=== PATIENT | female | born 1975 | race Caucasian/White ===

== ENCOUNTER 2022-04-28 13:14 | Inpatient (IN) | payer OTHER ==
[2022-04-28 15:16] VITALS: BMI 23.5
[2022-04-28] MEDS ORDERED: LOPERAMIDE HCL 2 MG CAPSULE PO PRN (17:35)
[2022-04-28] MEDS ORDERED: ACETAMINOPHEN 325 MG TABLET (FP) PO PRN ×2 (17:35)
[2022-04-28] MEDS ORDERED: BENZOCAINE/MENTHOL (CHLORASEPTIC ) LOZENGE MM PRN (17:35)
[2022-04-28] MEDS ORDERED: POLYETHYLENE GLYCOL (HEALTHYLAX) 3350 17 GM PACKET PO PRN (17:35)
[2022-04-28] MEDS ORDERED: NICOTINE 10 MG CARTRIDGE (INHALER) IH PRN (17:35)
[2022-04-28] MEDS ORDERED: NALOXONE HCL (KLOXXADO) 8 MG SPRAY NS PRN (17:35)
[2022-04-28] MEDS ORDERED: MAGNESIUM HYDROX 2400MG/30ML ORAL SUSPENSION 30 ML CUP PO PRN (17:35)
[2022-04-28] MEDS ORDERED: ONDANSETRON *ODT* 4 MG TABLET SL PRN (17:35)
[2022-04-28] MEDS ORDERED: IBUPROFEN 400 MG TABLET (FP) PO PRN (17:35)
[2022-04-28] MEDS ORDERED: BISMUTH SUBSALICYLATE 524 MG/30 ML PO PRN (17:35)
[2022-04-28] MEDS: PANTOPRAZOLE 40 MG TABLET PO SCH (18:20)
[2022-04-28] MEDS: METHOCARBAMOL 500 MG TABLET PO PRN (19:40)
[2022-04-28] MEDS: hydrOXYzine PAMOATE 25 MG CAPSULE (FP) PO PRN (19:40)
[2022-04-28] MEDS: chlordiazePOXIDE HCL 25 MG CAPSULE PO PRN (19:41)
[2022-04-28] MEDS: MAG HYDROX/AL HYDROX/SIMETH 30 ML UNIT-DOSE CUP PO PRN ×2 (19:44→22:25)
[2022-04-28] MEDS ORDERED: traZODone HCL 100 MG TABLET (FP) PO ONE (22:00)
[2022-04-28] MEDS: MELATONIN 5 MG TABLETS PO SCH (22:23)
[2022-04-28] MEDS: THIAMINE HCL 100 MG TABLET (FP) PO SCH (22:23)
[2022-04-28] MEDS: HYDROXYCHLOROQUINE SO4 200 MG TABLET (FP) PO SCH (22:56)
[2022-04-28] MEDS: chlordiazePOXIDE HCL 25 MG CAPSULE PO SCH (22:56)
[2022-04-29] MEDS: chlordiazePOXIDE HCL 25 MG CAPSULE PO SCH ×4 (05:45→22:39)
[2022-04-29] MEDS: LEVOTHYROXINE NA 150 MCG TABLET PO SCH (06:07)
[2022-04-29] MEDS: PRENATAL VITAMINS W/ FOLIC ACID TABLET (FP) PO SCH (10:00)
[2022-04-29] MEDS: PANTOPRAZOLE 40 MG TABLET PO SCH (10:01)
[2022-04-29] MEDS: HYDROXYCHLOROQUINE SO4 200 MG TABLET (FP) PO SCH ×2 (10:04→21:48)
[2022-04-29 11:26] LABS: HEMOGLOBIN 13.6 GM/dL (10.7-15.3); MCH 35.7 pg (25.7-33.7); MEAN CELL VOLUME 104.9 fl (80-96); MEAN PLT VOLUME 8.1 fl (7.5-11.1); PLATELET COUNT 208 10^3/uL (134-434); RBC 3.81 M/mm3 (3.60-5.2); RDW 12.4 % (11.6-15.6); WHITE BLOOD COUNT 5.2 K/mm3 (4.0-10.0)
[2022-04-29 11:30] LABS: BLOOD UREA NITROGEN 8.2 mg/dL (7-18)
[2022-04-29 11:31] LABS: ALBUMIN 3.6 g/dl (3.4-5.0); CREATININE 0.8 mg/dL (0.55-1.3)
[2022-04-29 11:32] LABS: BILIRUBIN,TOTAL 0.8 mg/dL (0.2-1); CALCIUM 9.1 mg/dL (8.5-10.1); TOT PROT 6.7 g/dl (6.4-8.2)
[2022-04-29] MEDS: NICOTINE POLACRILEX 2 MG GUM BUC PRN (12:24)
[2022-04-29] MEDS: METHOCARBAMOL 500 MG TABLET PO PRN ×2 (14:05→21:49)
[2022-04-29] MEDS: hydrOXYzine PAMOATE 25 MG CAPSULE (FP) PO PRN ×2 (14:05→23:23)
[2022-04-29] MEDS: chlordiazePOXIDE HCL 25 MG CAPSULE PO PRN ×2 (14:07→19:57)
[2022-04-29] MEDS: MAG HYDROX/AL HYDROX/SIMETH 30 ML UNIT-DOSE CUP PO PRN (20:01)
[2022-04-29] MEDS: THIAMINE HCL 100 MG TABLET (FP) PO SCH (21:48)
[2022-04-29] MEDS: QUEtiapine FUMARATE 200 MG TABLET PO SCH (21:48)
[2022-04-29] MEDS: traZODone HCL 50 MG TABLET (FP) PO SCH (21:48)
[2022-04-29] MEDS: MELATONIN 5 MG TABLETS PO SCH (21:48)
[2022-04-29] MEDS: levETIRAcetam 500 MG TABLET (FP) PO SCH (21:48)
[2022-04-29] MEDS: IBUPROFEN 600 MG TABLET (FP) PO PRN (23:24)
[2022-04-30] MEDS: chlordiazePOXIDE HCL 25 MG CAPSULE PO SCH ×4 (05:23→23:37)
[2022-04-30] MEDS: LEVOTHYROXINE NA 150 MCG TABLET PO SCH (06:51)
[2022-04-30] MEDS ORDERED: BUPRENORPHINE HCL SL SCH (10:00)
[2022-04-30] MEDS ORDERED: BUPRENORPHINE/NALOXONE 4 MG/1 MG FILM PACKET SL ONE (10:00)
[2022-04-30] MEDS ORDERED: NALOXONE HCL SL SCH (10:00)
[2022-04-30] MEDS ORDERED: PATIENT'S OWN MEDICATION (NON-FORMULARY) (Buprenorphine/Naloxone 1 EACH Film) SL SCH (10:00)
[2022-04-30] MEDS: HYDROXYCHLOROQUINE SO4 200 MG TABLET (FP) PO SCH ×2 (10:09→22:06)
[2022-04-30] MEDS: PANTOPRAZOLE 40 MG TABLET PO SCH (10:09)
[2022-04-30] MEDS: LEVOTHYROXINE 100 MCG, LEVOTHYROXINE 50 MCG PO SCH (10:09)
[2022-04-30] MEDS: levETIRAcetam 500 MG TABLET (FP) PO SCH ×2 (10:09→22:06)
[2022-04-30] MEDS: PRENATAL VITAMINS W/ FOLIC ACID TABLET (FP) PO SCH (10:10)
[2022-04-30] MEDS: hydrOXYzine PAMOATE 25 MG CAPSULE (FP) PO PRN ×2 (10:11→17:37)
[2022-04-30] MEDS: NICOTINE POLACRILEX 2 MG GUM BUC PRN ×5 (10:46→20:56)
[2022-04-30] MEDS: chlordiazePOXIDE HCL 25 MG CAPSULE PO PRN ×2 (12:57→20:52)
[2022-04-30] MEDS: METHOCARBAMOL 500 MG TABLET PO PRN ×2 (13:00→22:08)
[2022-04-30] MEDS: traZODone HCL 50 MG TABLET (FP) PO SCH (22:06)
[2022-04-30] MEDS: THIAMINE HCL 100 MG TABLET (FP) PO SCH (22:06)
[2022-04-30] MEDS: QUEtiapine FUMARATE 200 MG TABLET PO SCH (22:06)
[2022-04-30] MEDS: MELATONIN 5 MG TABLETS PO SCH (22:07)
[2022-04-30] MEDS: MAG HYDROX/AL HYDROX/SIMETH 30 ML UNIT-DOSE CUP PO PRN (23:37)
[2022-05-01] MEDS ORDERED: chlordiazePOXIDE HCL 10 MG CAPSULE PO PRN
[2022-05-01] MEDS: DICYCLOMINE HCL 10 MG CAPSULE PO PRN ×3 (02:58→17:38)
[2022-05-01] MEDS: chlordiazePOXIDE HCL 10 MG CAPSULE PO SCH ×4 (04:54→22:07)
[2022-05-01] MEDS: METHOCARBAMOL 500 MG TABLET PO PRN ×2 (05:28→17:35)
[2022-05-01] MEDS: LEVOTHYROXINE 100 MCG, LEVOTHYROXINE 50 MCG PO SCH (06:09)
[2022-05-01] MEDS ORDERED: BUPRENORPHINE/NALOXONE 2 MG/0.5 MG FILM PACKET SL SCH (10:00)
[2022-05-01] MEDS: HYDROXYCHLOROQUINE SO4 200 MG TABLET (FP) PO SCH ×2 (10:00→22:07)
[2022-05-01] MEDS: BUPRENORPHINE/NALOXONE 4 MG/1 MG FILM PACKET SL SCH (10:01)
[2022-05-01] MEDS: PRENATAL VITAMINS W/ FOLIC ACID TABLET (FP) PO SCH (10:01)
[2022-05-01] MEDS: levETIRAcetam 500 MG TABLET (FP) PO SCH ×2 (10:01→22:07)
[2022-05-01] MEDS: PANTOPRAZOLE 40 MG TABLET PO SCH (10:01)
[2022-05-01] MEDS: hydrOXYzine PAMOATE 25 MG CAPSULE (FP) PO PRN (17:35)
[2022-05-01] MEDS: NICOTINE POLACRILEX 2 MG GUM BUC PRN (17:40)
[2022-05-01] MEDS: IBUPROFEN 600 MG TABLET (FP) PO PRN (18:51)
[2022-05-01] MEDS: MELATONIN 5 MG TABLETS PO SCH (22:06)
[2022-05-01] MEDS: traZODone HCL 50 MG TABLET (FP) PO SCH (22:07)
[2022-05-01] MEDS: THIAMINE HCL 100 MG TABLET (FP) PO SCH (22:07)
[2022-05-01] MEDS: QUEtiapine FUMARATE 200 MG TABLET PO SCH (22:07)
[2022-05-02] MEDS: METHOCARBAMOL 500 MG TABLET PO PRN ×3 (01:14→17:23)
[2022-05-02] MEDS: chlordiazePOXIDE HCL 10 MG CAPSULE PO SCH ×2 (06:16→17:21)
[2022-05-02] MEDS: LEVOTHYROXINE 100 MCG, LEVOTHYROXINE 50 MCG PO SCH (06:17)
[2022-05-02] MEDS: DICYCLOMINE HCL 10 MG CAPSULE PO PRN (06:43)
[2022-05-02] MEDS: levETIRAcetam 500 MG TABLET (FP) PO SCH ×2 (10:01→22:07)
[2022-05-02] MEDS: PANTOPRAZOLE 40 MG TABLET PO SCH (10:01)
[2022-05-02] MEDS: PRENATAL VITAMINS W/ FOLIC ACID TABLET (FP) PO SCH (10:01)
[2022-05-02] MEDS: HYDROXYCHLOROQUINE SO4 200 MG TABLET (FP) PO SCH ×2 (10:02→22:07)
[2022-05-02] MEDS: hydrOXYzine PAMOATE 25 MG CAPSULE (FP) PO PRN ×2 (10:04→17:23)
[2022-05-02] MEDS: BUPRENORPHINE/NALOXONE 4 MG/1 MG FILM PACKET SL SCH (10:05)
[2022-05-02] MEDS: NICOTINE POLACRILEX 2 MG GUM BUC PRN ×5 (10:05→22:09)
[2022-05-02] MEDS: MELATONIN 5 MG TABLETS PO SCH (22:06)
[2022-05-02] MEDS: traZODone HCL 50 MG TABLET (FP) PO SCH (22:06)
[2022-05-02] MEDS: THIAMINE HCL 100 MG TABLET (FP) PO SCH (22:07)
[2022-05-02] MEDS: QUEtiapine FUMARATE 200 MG TABLET PO SCH (22:07)
[2022-05-02] MEDS: MAG HYDROX/AL HYDROX/SIMETH 30 ML UNIT-DOSE CUP PO PRN (23:15)
[2022-05-03] MEDS ORDERED: chlordiazePOXIDE HCL 10 MG CAPSULE PO ONE (05:00)
[2022-05-03] MEDS: LEVOTHYROXINE 100 MCG, LEVOTHYROXINE 50 MCG PO SCH (07:07)
[2022-05-03] MEDS: NICOTINE POLACRILEX 2 MG GUM BUC PRN (08:55)
[2022-05-03 09:11] VITALS: BP 122/81; PULSE 76; RESP 18; TEMP 97.1
[2022-05-03] MEDS: levETIRAcetam 500 MG TABLET (FP) PO SCH (09:42)
[2022-05-03] MEDS: PRENATAL VITAMINS W/ FOLIC ACID TABLET (FP) PO SCH (09:42)
[2022-05-03] MEDS: BUPRENORPHINE/NALOXONE 4 MG/1 MG FILM PACKET SL SCH (09:43)
[2022-05-03] MEDS: HYDROXYCHLOROQUINE SO4 200 MG TABLET (FP) PO SCH (09:43)
[2022-05-03] MEDS: PANTOPRAZOLE 40 MG TABLET PO SCH (09:43)
[2022-05-03] MEDS: IBUPROFEN 600 MG TABLET (FP) PO PRN (09:46)
== END 2022-05-03 10:02 | disposition home or self-care (01) | DRG 773 ==
LOC: YASAS 13:14 → Y3N 18:09
PROVIDERS: ADMIT Allergy & Immunology; ATTEND Surgery
PROC: HZ2ZZZZ Detoxification Services for Substance Abuse Treatment (ICD-10-PCS; principal; 2022-04-28)
DX: F10.230 Alcohol dependence with withdrawal, uncomplicated (principal); F11.20 Opioid dependence, uncomplicated; F17.210 Nicotine dependence, cigarettes, uncomplicated; F41.9 Anxiety disorder, unspecified; F32.A Depression, unspecified; E03.9 Hypothyroidism, unspecified; J45.30 Mild persistent asthma, uncomplicated; M32.9 Systemic lupus erythematosus, unspecified; Z86.19 Personal history of other infectious and parasitic diseases
CPT/HCPCS: 36415; 80053; 84443; 85027; 86593; 86780; 87811; C9803-CS; Q0162; U0003; U0005